=== PATIENT | female | born 1935 | race Caucasian/White ===

== ENCOUNTER 2017-02-22 16:44 | Emergency (ER) | payer MEDICARE, OTHER ==
[~2017-02-22] VITALS: Ht 157.5 cm; Wt 56.8 kg
[~2017-02-22 16:44] MED LIST: AREDS OU; ASPIRIN E.C. 8181 MG PO; AZOR 5 MG-40 MG1 TAB PO; CALCIUM 600600 M2 PO; COREG25 MG PO; FOLIC ACID1 MG PO; GABAPENTIN100 MG PO; GLUCOSAMINE & C1 CA1 PO; HCTZ 25MG25 MG PO; LEVAQUIN 5500 MG/TA1 PO; MILK OF MA400 MG/5 M PO; POTASSIUM20 MEQ PO; SENNA1 TAB PO; ZETIA 10MG TAB10 MG PO
[2017-02-22 18:39] VITALS: BP 163/105
[2017-02-22 18:56] LABS: PROTHROMBIN TIME 31.2 SECONDS (9.0-12.0)
== END 2017-02-22 19:47 | disposition home or self-care (01) ==
LOC: ED 16:44
PROVIDERS: Nurse Practitioner Primary Care
DX: S01.512A Laceration without foreign body of oral cavity, initial encounter (principal); X58.XXXA Exposure to other specified factors, initial encounter; Z79.01 Long term (current) use of anticoagulants; R20.8 Other disturbances of skin sensation; Z85.118 Personal history of other malignant neoplasm of bronchus and lung; Z86.73 Personal history of transient ischemic attack (TIA), and cerebral infarction without residual deficits; I10 Essential (primary) hypertension; I48.91 Unspecified atrial fibrillation

== ENCOUNTER 2017-04-17 20:53 | Emergency (ER) | payer MEDICARE, OTHER ==
[~2017-04-17] VITALS: Ht 162.6 cm; Wt 55.5 kg
[2017-04-17 21:53] VITALS: BP 150/90
[2017-04-18] MEDS ORDERED: ZETIA10 M1 PO (00:33)
[2017-04-18] MEDS ORDERED: CHILDREN'S ASPI81 M1 PO (00:34)
[2017-04-18] MEDS ORDERED: COREG 3.123.125 MG/T PO (00:34)
[2017-04-18] MEDS ORDERED: CALCIUM CARBON600 M1 PO (00:34)
[2017-04-18] MEDS ORDERED: KLOR-CON 1010 MEQ (00:35)
[2017-04-18] MEDS ORDERED: ALPHA LIPOIC A600 MG PO (00:35)
== END 2017-04-17 21:53 | disposition home or self-care (01) ==
LOC: ED 20:53
DX: S61.412A Laceration without foreign body of left hand, initial encounter (principal); W25.XXXA Contact with sharp glass, initial encounter; Y92.009 Unspecified place in unspecified non-institutional (private) residence as the place of occurrence of the external cause; Z23 Encounter for immunization; Z86.73 Personal history of transient ischemic attack (TIA), and cerebral infarction without residual deficits; Z85.118 Personal history of other malignant neoplasm of bronchus and lung; Z88.8 Allergy status to other drugs, medicaments and biological substances
CPT/HCPCS: 90715; A4550

== ENCOUNTER 2017-04-28 11:06 | Emergency (ER) | payer MEDICARE, OTHER ==
[~2017-04-28 11:06] MED LIST changes: +ALPHA LIPOIC A600 MG PO; +CALCIUM CARBON600 M1 PO; +CHILDREN'S ASPI81 M1 PO; +COREG 3.123.125 MG/T PO; +KLOR-CON 1010 MEQ; +ZETIA10 M1 PO
[2017-04-28 11:26] VITALS: BP 155/95
== END 2017-04-28 11:26 | disposition home or self-care (01) ==
LOC: ED 11:06
DX: S61.412D Laceration without foreign body of left hand, subsequent encounter (principal); X58.XXXD Exposure to other specified factors, subsequent encounter